=== PATIENT | female | born 1970 | race African-American/Black ===

== ENCOUNTER 2021-07-21 22:43 | Observation (INO) | payer OTHER ==
[2021-07-21] MEDS ORDERED: CEFAZOLIN 1 GM in DEXTROSE 5%-WATER - 50 ML IVPB ONE (22:50)
[2021-07-21] MEDS ORDERED: morphine SULFATE 4 MG/ML VIAL IVPUSH ONE (23:01)
[2021-07-21] MEDS ORDERED: morphine CARPU-JECT 2 MG/1 ML DISP.SYRIN IVPUSH ONE (23:01)
[2021-07-21] MEDS ORDERED: SODIUM CHLORIDE 1,000 ML IV ONE (23:04)
[2021-07-21 23:16] LABS: HEMATOCRIT 37.9 % (32.4-45.2); HEMOGLOBIN 12.6 GM/dl (10.7-15.3); MCHC 33.3 g/dl (32.0-36.0); MEAN CELL VOLUME 87.1 fl (80-96); PLATELET COUNT 152 10^3/uL (134-434); RBC 4.35 M/mm3 (3.60-5.2); RDW 13.7 % (11.6-15.6)
[2021-07-21 23:23] LABS: INR 1.03 (0.82-1.09); PROTHROMBIN TIME (PATIENT) 11.5 SEC (10.2-13.0)
[2021-07-21] MEDS ORDERED: morphine SULFATE 4 MG/ML VIAL ONE (23:28)
[2021-07-21 23:29] LABS: ALBUMIN 3.7 g/dl (3.4-5.0); BILIRUBIN,TOTAL 0.7 mg/dl (0.2-1); CALCIUM 8.6 mg/dl (8.5-10); CREATININE 0.7 mg/dl (0.55-1.3); TOT PROT 6.2 g/dl (6.4-8.2)
[2021-07-21 23:33] LABS: PLATELET ESTIMATE ADEQUATE
[2021-07-21] MEDS ORDERED: ceFAZolin SODIUM 1 GM VIAL ONE (23:38)
[2021-07-21] MEDS ORDERED: ACETAMINOPHEN 325 MG TABLET (FP) PO PRN (23:45)
[2021-07-21] MEDS ORDERED: CEFAZOLIN 1 GM in DEXTROSE 5%-WATER - 50 ML IVPB SCH (23:45)
[2021-07-21] MEDS ORDERED: SODIUM CHLORIDE 1,000 ML IV SCH (23:45)
[2021-07-22] MEDS ORDERED: oxyCODONE HCL 5 MG TABLET ONE (03:44)
[2021-07-22] MEDS: oxyCODONE HCL 5 MG TABLET PO PRN ×2 (03:44→08:06)
[2021-07-22] MEDS ORDERED: ONDANSETRON 4 MG/2 ML VIAL IVPB PRN (04:08)
[2021-07-22 04:56] LABS: HEMATOCRIT 32.8 % (32.4-45.2); MCH 29.5 pg (25.7-33.7); MCHC 33.6 g/dl (32.0-36.0); MEAN CELL VOLUME 87.8 fl (80-96); MEAN PLT VOLUME 9.7 fl (7.5-11.1); PLATELET COUNT 148 10^3/uL (134-434); RBC 3.74 M/mm3 (3.60-5.2); RDW 14.5 % (11.6-15.6); WHITE BLOOD COUNT 13.5 K/mm3 (4.0-10.0)
[2021-07-22 05:00] LABS: EPI CELLS 15 /uL (0-25.1); HYALINE CASTS 1 /uL (0-3.1); URINE APPEARANCE CLEAR; URINE BACTERIA 10 /uL (0-1359); URINE BILIRUBIN NEGATIVE (NEGATIVE); URINE COLOR YELLOW; URINE GLUCOSE (UA) NEGATIVE (NEGATIVE); URINE KETONE NEGATIVE (NEGATIVE); URINE LEUK ESTERASE 2+ (NEGATIVE); URINE NITRITE NEGATIVE (NEGATIVE); URINE PROTEIN NEGATIVE (NEGATIVE); URINE RBC 2 /uL (0-23.9); URINE UROBILINOGEN 0.2 mg/dL (0.2-1.0); URINE WBC 70 /uL (0-25.8)
[2021-07-22 05:10] VITALS: BMI 29.2
[2021-07-22] MEDS ORDERED: CEFAZOLIN 1 GM in DEXTROSE 5%-WATER - 50 ML IVPB ONE (06:00)
[2021-07-22 07:24] LABS: HEMATOCRIT 30.8 % (32.4-45.2); HEMOGLOBIN 10.3 GM/dl (10.7-15.3); MCH 29.1 pg (25.7-33.7); MCHC 33.4 g/dl (32.0-36.0); MEAN CELL VOLUME 87.2 fl (80-96); MEAN PLT VOLUME 8.6 fl (7.5-11.1); PLATELET COUNT 135 10^3/uL (134-434); RBC 3.54 M/mm3 (3.60-5.2); RDW 13.7 % (11.6-15.6); WHITE BLOOD COUNT 11.2 K/mm3 (4.0-10.8)
[2021-07-22 07:34] LABS: INR 1.13 (0.82-1.09); PROTHROMBIN TIME (PATIENT) 12.6 SEC (10.2-13.0)
[2021-07-22 07:37] LABS: CALCIUM 7.9 mg/dl (8.5-10); CREATININE 0.8 mg/dl (0.55-1.3); MAGNESIUM 1.9 mg/dL (1.8-2.4)
[2021-07-22 09:50] VITALS: BP 110/73; PULSE 60; TEMP 98.8
[2021-07-22] MEDS ORDERED: VALSARTAN 80 MG TABLET PO SCH (10:00)
[2021-07-22] MEDS ORDERED: SODIUM CHLORIDE 1,000 ML IV ONE (23:04)
== END 2021-07-22 12:00 | disposition home or self-care (01) ==
LOC: FER 22:43 → FM/S 23:42 → UNDOADMOB 07-22 03:16 → FM/S 07-22 03:16
PROVIDERS: ADMIT Internal Medicine; ATTEND Nurse Practitioner Acute Care
PROC: 3E03329 Introduction of Other Anti-infective into Peripheral Vein, Percutaneous Approach (ICD-10-PCS; principal; 2021-07-21)
PROC: 3E033NZ Introduction of Analgesics, Hypnotics, Sedatives into Peripheral Vein, Percutaneous Approach (ICD-10-PCS; 2021-07-21)
PROC: 3E0337Z Introduction of Electrolytic and Water Balance Substance into Peripheral Vein, Percutaneous Approach (ICD-10-PCS; 2021-07-21)
DX: L76.22 Postprocedural hemorrhage of skin and subcutaneous tissue following other procedure (principal); R53.83 Other fatigue; G89.18 Other acute postprocedural pain; Z88.8 Allergy status to other drugs, medicaments and biological substances; I10 Essential (primary) hypertension
CPT/HCPCS: 36415; 71045-TC-FY; 80048; 80053; 81003; 83735; 85025; 85027; 85610; 96361; 96365; 96366; 96375; 96376; 99285-25; C9803; G0378; U0003; U0005